=== PATIENT | male | born 1950 | race Caucasian/White ===

== ENCOUNTER 2020-06-13 13:52 | Inpatient (IN) | payer MEDICARE, OTHER ==
[~2020-06-13] VITALS: Ht 175.3 cm; Wt 78.6 kg
[~2020-06-13 13:52] MED LIST: AUGMENTIN 875-1 EACH PO; CERTAGEN1 EACH PO; INSULIN PUMP; NOVOLOG FL100 UNIT/1 ID; TRAVATAN Z5 ML OT; ZESTRIL5 MG PO
[2020-06-13 15:04] LABS: BASOPHIL 0.2 % (0-2); EOSINOPHIL 0.1 % (0-7); HCT 38.9 % (42.0-52.0); HGB 13.3 g/dl (13.2-18.0); LYMPHOCYTE 3.8 % (15-48); MCH 31.7 pg (25.0-31.0); MCHC 34.2 g/dL (32.0-36.0); MCV 92.8 fL (78.0-100.0); MONOCYTE 9.1 % (0-12); MPV 9.7 fL (6.0-9.5); NEUTROPHIL 86.3 % (41-80); NRBC 0; PLT 207 K/uL (150-400); RBC 4.19 M/uL (4.70-6.00); WBC 12.8 K/uL (4.0-10.5)
[2020-06-13 15:29] LABS: BILIRUBIN - TOTAL 0.7 mg/dL (0.2-1.0); BUN/CREAT RATIO (CALC) 21.1 RATIO; CREATININE 1.33 mg/dL (0.67-1.17); GLOBULIN (CALCULATION) 3.2 g/dL; POTASSIUM 4.5 mmol/L (3.5-5.1); TOTAL PROTEIN 7.2 g/dL (6.4-8.2)
[2020-06-13 16:47] LABS: BILIRUBIN 1+ mg/dL (NEGATIVE); BLOOD 1+ Ery/uL (NEGATIVE); CLARITY CLEAR (CLEAR); COLOR YELLOW (YELLOW); GLUCOSE (U) 1+ mg/dL (NORMAL); LEUKOCYTES NEGATIVE Leu/uL (NEGATIVE); NITRITE NEGATIVE (NEGATIVE); PROTEIN NEGATIVE (NEGATIVE); SPECIFIC GRAVITY >=1.030 (1.001-1.030); UROBILINOGEN 0.2 mg/dL (0.2-1.0)
[2020-06-13 16:52] LABS: BACTERIA TRACE; URINARY WBC RARE
[2020-06-13 19:38] LABS: CORONAVIRUS 2019 SARS-COV-2 NEGATIVE (NEGATIVE); INFLUENZA A NAA NEGATIVE (NEGATIVE)
--- NOTE | 2020-06-14 02:37 | NUR ---
06/14/20 0120PT TRANSFERRED FROM [facility] TO ICU3. REPORT RECIEVED FROM VANITA MORAN. PT WAS HYPOTENSIVE ON MED-SURG. BLOOD PRESSURE 92/45, PATIENT WAS GIVEN 1L BOLUS. AFTER BOLUS BLOOD PRESSURE 80/48. PT WAS TACHYCARDIC IN THE 120'S. BLOOD GLUCOSE 388. 10 UNITS SUBQ INSULIN GIVEN. PT WAS HOOKED UP TO ICU MONITOR. NOTED TO BE ST AT 110. B/P 99/54 WITH 1L NS BOLUS INFUSING. RR 17. 99% RA. ORAL TEMP 99.3. PT A/O X4. PT DENIES ANY SOA OR DISCOMFORT. DENIES ANY PAIN. NO SIGNS OF DISTRESS. ANTIBIOTICS TO BE ORDERED.
[2020-06-14 03:47] LABS: BASOPHIL 0.1 % (0-2); EOSINOPHIL 0.4 % (0-7); HCT 32.9 % (42.0-52.0); HGB 11.2 g/dl (13.2-18.0); LYMPHOCYTE 6.5 % (15-48); MCH 31.5 pg (25.0-31.0); MCV 92.4 fL (78.0-100.0); MONOCYTE 8.2 % (0-12); MPV 9.7 fL (6.0-9.5); NEUTROPHIL 84.3 % (41-80); NRBC 0; PLT 184 K/uL (150-400); RBC 3.56 M/uL (4.70-6.00); RDW 13.5 % (11.5-14.0); WBC 14.1 K/uL (4.0-10.5)
[2020-06-14 04:12] LABS: BUN/CREAT RATIO (CALC) 22.8 RATIO; CREATININE 1.62 mg/dL (0.67-1.17); POTASSIUM 5.3 mmol/L (3.5-5.1)
[2020-06-14 17:10] LABS: BUN/CREAT RATIO (CALC) 24.4 RATIO; CREATININE 1.31 mg/dL (0.67-1.17); POTASSIUM 3.9 mmol/L (3.5-5.1)
[2020-06-15 05:08] LABS: HGB 11.2 g/dl (13.2-18.0); MCV 91.4 fL (78.0-100.0); MPV 10.2 fL (6.0-9.5); RBC 3.5 M/uL (4.70-6.00); WBC 13.4 K/uL (4.0-10.5)
[2020-06-15 06:04] LABS: BUN/CREAT RATIO (CALC) 20.2 RATIO; CREATININE 1.04 mg/dL (0.67-1.17); POTASSIUM 3.4 mmol/L (3.5-5.1)
[2020-06-16 05:36] LABS: BASOPHIL 0.5 % (0-2); EOSINOPHIL 3.8 % (0-7); HCT 30.9 % (42.0-52.0); HGB 10.8 g/dl (13.2-18.0); LYMPHOCYTE 27.8 % (15-48); MCV 91.4 fL (78.0-100.0); MONOCYTE 9.6 % (0-12); MPV 9.9 fL (6.0-9.5); PLT 144 K/uL (150-400); RBC 3.38 M/uL (4.70-6.00); WBC 6.1 K/uL (4.0-10.5)
[2020-06-16 05:57] LABS: CREATININE 0.92 mg/dL (0.67-1.17); POTASSIUM 3.9 mmol/L (3.5-5.1)
[2020-06-16 06:37] LABS: EOSINOPHIL(M) 3 % (0-7); LYMPHOCYTE(M) 31 % (15-48); MONOCYTE(M) 6 % (0-12); NEUTROPHILS(M) 58 % (41-80); TOTAL CELL COUNT 100; VARIANT LYMPHOCYTE 2
[2020-06-16 06:38] LABS: PLATELET ESTIMATE NORMAL
[2020-06-16 06:39] LABS: NRBC 0; PLATELET MORPHOLOGY NORMAL
[2020-06-16] MEDS ORDERED: ASPIRIN EC81 MG PO (15:54)
--- NOTE | 2020-06-16 16:50 | NUR ---
DISCHARGED VIA WHEELCHAIR TO ER DOOR. DISCHARGE INSTRUCTIONS GIVEN, VERBALIZED UNDERSTANDING OF INSTRUCTIONS. TLC DCD.
== END 2020-06-16 17:08 | disposition home or self-care (01) | DRG 919 ==
LOC: FER 13:52 → FMS 19:52 → FICU 06-14 01:07 → FTCU 06-16 09:40
PROVIDERS: Emergency Medicine; Hospitalist; Internal Medicine Cardiovascular Disease; Nurse Practitioner; Nurse Practitioner Family; ADMIT Internal Medicine
DX: T85.614A Breakdown (mechanical) of insulin pump, initial encounter (principal); E10.10 Type 1 diabetes mellitus with ketoacidosis without coma; R57.1 Hypovolemic shock; I21.A1 Myocardial infarction type 2; G93.41 Metabolic encephalopathy; R65.10 Systemic inflammatory response syndrome (SIRS) of non-infectious origin without acute organ dysfunction; N17.9 Acute kidney failure, unspecified; E10.65 Type 1 diabetes mellitus with hyperglycemia; Z20.822 Contact with and (suspected) exposure to COVID-19; R00.0 Tachycardia, unspecified; E86.0 Dehydration; I25.10 Atherosclerotic heart disease of native coronary artery without angina pectoris; R01.1 Cardiac murmur, unspecified; Z79.4 Long term (current) use of insulin; Z96.41 Presence of insulin pump (external) (internal); Z80.42 Family history of malignant neoplasm of prostate; Z83.3 Family history of diabetes mellitus; Z81.8 Family history of other mental and behavioral disorders; Z88.1 Allergy status to other antibiotic agents
CPT/HCPCS: 36415; 36600; 70450; 71045; 76770; 80048; 80053; 80202; 81001; 82009; 82803; 82962; 83036; 83605; 83880; 84443; 84484; 85025; 85730; 87040; 87088; 93005; G0378; J1644; J2405; J2543; J3370; J7030; J7042; J7050; J7070; U0002

== ENCOUNTER 2020-06-20 15:30 | Emergency (ER) | payer MEDICARE, OTHER ==
[~2020-06-20 15:30] MED LIST changes: +ASPIRIN EC81 MG PO
[2020-06-20 16:12] LABS: BASOPHIL 0.7 % (0-2); HCT 37.1 % (42.0-52.0); HGB 12.4 g/dl (13.2-18.0); LYMPHOCYTE 17.3 % (15-48); MCH 31.3 pg (25.0-31.0); MCHC 33.4 g/dL (32.0-36.0); MCV 93.7 fL (78.0-100.0); MONOCYTE 16.2 % (0-12); MPV 10.1 fL (6.0-9.5); NEUTROPHIL 61.4 % (41-80); NRBC 0; PLT 252 K/uL (150-400); RBC 3.96 M/uL (4.70-6.00); RDW 13.8 % (11.5-14.0); WBC 8.5 K/uL (4.0-10.5)
[2020-06-20 16:29] LABS: BUN/CREAT RATIO (CALC) 16.9 RATIO; CREATININE 0.83 mg/dL (0.67-1.17); POTASSIUM 3.6 mmol/L (3.5-5.1)
[2020-06-20] MEDS ORDERED: GLUCAGON EMERGEN1 M1 PO (18:01)
== END 2020-06-20 18:45 | disposition home or self-care (01) ==
LOC: FER 15:30
PROVIDERS: Nurse Practitioner Family
DX: E10.649 Type 1 diabetes mellitus with hypoglycemia without coma (principal)
CPT/HCPCS: 36415; 80048; 85025

== ENCOUNTER 2020-06-25 15:51 | Inpatient (IN) | payer MEDICARE, OTHER ==
[~2020-06-25 15:51] MED LIST changes: +GLUCAGON EMERGEN1 M1 PO
[2020-06-25 16:30] LABS: BASOPHIL 0.2 % (0-2); EOSINOPHIL 0 % (0-7); HCT 37.2 % (42.0-52.0); HGB 12.4 g/dl (13.2-18.0); LYMPHOCYTE 6.2 % (15-48); MCH 31.7 pg (25.0-31.0); MCHC 33.3 g/dL (32.0-36.0); MCV 95.1 fL (78.0-100.0); MONOCYTE 7.2 % (0-12); MPV 9.5 fL (6.0-9.5); NEUTROPHIL 85.9 % (41-80); NRBC 0; PLT 332 K/uL (150-400); RBC 3.91 M/uL (4.70-6.00); RDW 14.7 % (11.5-14.0); WBC 16.8 K/uL (4.0-10.5)
[2020-06-25 16:58] LABS: LACTIC ACID 3.4 mmol/L (0.4-1.9)
[2020-06-25 17:11] LABS: ALBUMIN 3.6 g/dL (3.4-5.0); BILIRUBIN - TOTAL 1.3 mg/dL (0.2-1.0); BUN/CREAT RATIO (CALC) 23.1 RATIO; CREATININE 1.17 mg/dL (0.67-1.17); GLOBULIN (CALCULATION) 3.2 g/dL; POTASSIUM 5.9 mmol/L (3.5-5.1); TOTAL PROTEIN 6.8 g/dL (6.4-8.2)
[2020-06-25 17:18] LABS: BILIRUBIN NEGATIVE (NEGATIVE); BLOOD TRACE-LYSED Ery/uL (NEGATIVE); CLARITY CLEAR (CLEAR); COLOR YELLOW (YELLOW); GLUCOSE (U) 3+ mg/dL (NORMAL); LEUKOCYTES NEGATIVE Leu/uL (NEGATIVE); NITRITE NEGATIVE (NEGATIVE); PROTEIN NEGATIVE (NEGATIVE); UROBILINOGEN 0.2 mg/dL (0.2-1.0); pH 5.5 (5.0-9.0)
[2020-06-25 17:25] LABS: BACTERIA TRACE; URINARY RBC RARE; URINARY WBC RARE
[2020-06-25 17:54] LABS: CORONAVIRUS 2019 SARS-COV-2 NEGATIVE (NEGATIVE); INFLUENZA A NAA NEGATIVE (NEGATIVE)
--- NOTE | 2020-06-25 20:18 | NUR ---
PATIENT ARRIVED TO FLOOR FROM ER. INSULIN GTT INFUSING. AOX4 ABLE TO VOICE NEEDS DENIES PAIN. BED IN LOW POSITION CALL LIGHT IN REACH.
[2020-06-25] MEDS ORDERED: LUMIGAN5 ML EYEBOTH (20:26)
[2020-06-25 23:25] LABS: BUN/CREAT RATIO (CALC) 22.2 RATIO; CREATININE 0.99 mg/dL (0.67-1.17); POTASSIUM 4.1 mmol/L (3.5-5.1)
--- NOTE | 2020-06-26 00:54 | NUR ---
MAINTENANCE EQUIPMENT OPERATOR NOTIFIED OF BP TRENDING DOWNWARD. NO NEW ORDERS AT THIS TIME.
--- NOTE | 2020-06-26 04:47 | NUR ---
0330 [employer] business development notified of glucose check 126. [employer] stated leave insulin gtt at 0.5 and recheck every 2 hrs.
[2020-06-26 05:36] LABS: BASOPHIL 0.6 % (0-2); HCT 32.5 % (42.0-52.0); HGB 11.4 g/dl (13.2-18.0); LYMPHOCYTE 21.5 % (15-48); MCH 32.5 pg (25.0-31.0); MCHC 35.1 g/dL (32.0-36.0); MCV 92.6 fL (78.0-100.0); MONOCYTE 10.1 % (0-12); MPV 9.2 fL (6.0-9.5); NEUTROPHIL 65.3 % (41-80); PLT 294 K/uL (150-400); RBC 3.51 M/uL (4.70-6.00); RDW 14.6 % (11.5-14.0); WBC 9.9 K/uL (4.0-10.5)
[2020-06-26 06:12] LABS: CREATININE 0.84 mg/dL (0.67-1.17); POTASSIUM 4.1 mmol/L (3.5-5.1)
[2020-06-26 06:13] LABS: BAND 1 % (0-10); EOSINOPHIL(M) 2 % (0-7); LYMPHOCYTE(M) 22 % (15-48); MONOCYTE(M) 7 % (0-12); NEUTROPHILS(M) 68 % (41-80); TOTAL CELL COUNT 100
[2020-06-26 06:14] LABS: PLATELET ESTIMATE NORMAL; PLATELET MORPHOLOGY NORMAL
--- NOTE | 2020-06-26 20:57 | NUR ---
NO INSULIN GIVEN TONIGHT, GLUCOSE WAS 76, WILL CONTINUE TO MONITOR
--- NOTE | 2020-06-27 10:30 | NUR ---
06/27/20 Mr. Adams lives alone. He is independent in the home and community. He was provided with nformation re: Emergency alert systems.
[2020-06-27] MEDS ORDERED: BASAGLAR K100 UNIT/1 SC (12:13)
[2020-06-27] MEDS ORDERED: HUMULIN R100 UNIT/2 SC (12:22)
[2020-06-27] MEDS ORDERED: NEEDLE1 EA11 SC (12:47)
[2020-06-27] MEDS ORDERED: COMFORT EZ SC (12:47)
--- NOTE | 2020-06-27 13:48 | NUR ---
PHARMACIST CAME AND SPOKE WITH PATIENT IN [facility] TO INSULIN ADMINISTRATION WITH A NEEDLE AND SYRINGE AND PRE LOADED PEN. PT STATES THAT HE REMEMBERS FROM DOING IN PREVIOUSLY, AND WAS ABLE TO TEACH BACK DRAWING UP THE MEDICATIONS AND THE SITES TO ADMINISTER IN. HYPOGLYCEMIA EDUCATION WAS INCLUDED IN DISCHARGE PAPER WORK PATIENT STATED THAT IF HE HAD ANY MORE QUESTIONS HE WOULD CALL AND ASK TO GET THEM ANSWERED AND IF THERE WERE NEW QUESTIONS THAT CAME UP WITHIN THE TIME OF PICKING UP HIS MEDICINE HE WOULD TALK TO THE PHARMACIST
== END 2020-06-27 13:30 | disposition home or self-care (01) | DRG 639 ==
LOC: FER 15:51 → FTCU 17:45 → FICU 19:29 → FTCU 06-26 16:44
PROVIDERS: Emergency Medicine; ADMIT Hospitalist
DX: E10.10 Type 1 diabetes mellitus with ketoacidosis without coma (principal); Z20.822 Contact with and (suspected) exposure to COVID-19; Z96.41 Presence of insulin pump (external) (internal); Z66 Do not resuscitate; I10 Essential (primary) hypertension; I25.2 Old myocardial infarction; Z79.899 Other long term (current) drug therapy; Z88.1 Allergy status to other antibiotic agents; Z98.890 Other specified postprocedural states
CPT/HCPCS: 36415; 36600; 70450; 71045; 80048; 80053; 81001; 82803; 82962; 83605; 84484; 85025; 87040; 87088; 93005; 97161; 97530-GP; J0692; J1650; J2543; J3370; J7030; J7042; J7050; U0002